=== PATIENT | male | born 1980 | race Caucasian/White ===

== ENCOUNTER 2023-02-19 19:55 | Outpatient (OUT) | payer BC, SELFPAY | END 2023-02-19 19:56 | disposition home or self-care (01) | LOC: SLEEP 19:56 | PROVIDERS: PCP Family Medicine; Visit Provider Family Medicine | DX: G47.33 Obstructive sleep apnea (adult) (pediatric) (principal) | CPT/HCPCS: 95810 ==

== ENCOUNTER 2023-06-03 19:48 | Outpatient (OUT) | payer BC, SELFPAY | END 2023-06-03 19:49 | disposition home or self-care (01) | LOC: SLEEP 19:48 | PROVIDERS: PCP Psychiatry & Neurology Neurology; Visit Provider Psychiatry & Neurology Neurology | DX: G47.33 Obstructive sleep apnea (adult) (pediatric) (principal); G47.11 Idiopathic hypersomnia with long sleep time | CPT/HCPCS: 95811 ==